=== PATIENT | male | born 1985 | race Caucasian/White ===

== ENCOUNTER 2021-11-22 00:12 | Emergency (ER) | payer SELFPAY ==
[~2021-11-22] VITALS: Ht 175.3 cm; Wt 73.0 kg
[2021-11-22 00:16] VITALS: BP 125/90
== END 2021-11-22 00:32 | disposition left against medical advice (07) ==
LOC: ER 00:12
DX: Z53.21 Procedure and treatment not carried out due to patient leaving prior to being seen by health care provider (principal)